=== PATIENT | female | born 1955 | race Caucasian/White ===

== ENCOUNTER → 2019-01-26 | Outpatient (CLI) | payer MEDICARE ==
--- NOTE | 2019-01-26 11:42 | PCVCIMAG ---
APPROVED REPORT Study performed: 01/26/2019 10:55:27 Exam: Stress Echocardiogram Indication: elevated calcium score, htn, hlp, fam hx cad, copd Patient Location: Echo lab Stress Nurse: Gaby Anthony RN Status: routine Ht: 5 ft 3 in HR: 98 bpm BP: 114/82 mmHg Rhythm: Tachycardia Procedure The patient underwent an Exercise Stress Test using the Matthieu Protocol. Blood pressure, heart rate, and EKG were monitored. An Echocardiogram was performed by cable installation technician in four stages in quad fashion. At peak stress, four selected images were obtained and placed side by side with resting images for comparison. Stress Test Details Stress Test: Exercise stress testing was performed using a Matthieu protocol. HR Resting HR: 98 bpmMax Heart Rate (APMHR): 155 bpm Max HR Achieved: 155 bpmTarget HR (85% APMHR): 131 bpm % of APMHR: 100 Recovery HR: 91 bpm HR response to stress: Normal HR response to stress BP Resting BP: 114/82 mmHg Max BP: 156/78 mmHg Recovery BP: 118/78 mmHg BP response to stress: Normal blood pressure response to stress. ECG Resting ECG: Sinus tachycardia with PVCs Stress ECG: Sinus Rhythm ST Change: Normal Arrhythmia: frequent isolated and bigeminy PVCs Recovery ECG: Sinus Rhythm w/ PVCs Recovery ST Change: Normal Recovery Arrhythmia: SVT that resolved Clinical Reason for Termination: Maximal effort, Dyspnea Stress Symptoms: Dyspnea Exercise duration: 7 min 1 sec Highest Stage Achieved: Stage 3: 3.4 mph at 14% grade. Exercise capacity: 10.1 METs Overall Exercise Capacity for Age: Normal Scale: Active Angina Score: None Pre-Stress Echo The resting Echocardiogram showed normal left ventricular contractility with an estimated Ejection Fraction of about >55%. Normal wall motion in all segments on baseline images. Post-Stress Echo The stress Echocardiogram showed normal left ventricular contractility with an estimated Ejection Fraction of about 65%. Normal augmentation of wall motion in all segments on post stress images. Clinical No clinical or ECG evidence for ischemia. Conclusion Clinical Response: Non-ischemic Exercise Capacity: Average Stress ECG Response: Non-ischemic Stress Echo Images: Non-ischemic The left ventricle is normal in size and wall thickness in both the rest and stress images. Other Information Study Quality: Adequate <Conclusion> The left ventricle is normal in size and wall thickness in both the rest and stress images.
== END | disposition home or self-care (01) ==
LOC: PCVCIMAG 11:08
PROVIDERS: ATTEND Internal Medicine Cardiovascular Disease
DX: Z01.818 Encounter for other preprocedural examination (principal); I77.3 Arterial fibromuscular dysplasia; I10 Essential (primary) hypertension; E78.00 Pure hypercholesterolemia, unspecified; R94.31 Abnormal electrocardiogram [ECG] [EKG]; R09.89 Other specified symptoms and signs involving the circulatory and respiratory systems; Z82.49 Family history of ischemic heart disease and other diseases of the circulatory system; Z87.891 Personal history of nicotine dependence
CPT/HCPCS: 93325; 93351